=== PATIENT | female | born 1955 | race Caucasian/White ===

== ENCOUNTER 2019-10-30 18:44 | Outpatient (REF) | payer OTHER, SELFPAY ==
[2019-10-30 15:37] LABS: Abs Immature Grans 0.01 k/cumm (0.0-0.09); Absolute Basophil Count 0.02 k/cumm (0.0-0.2); Absolute Eosinophil Count 0.07 k/cumm (0.0-0.7); Absolute Lymphocyte Count 2.14 k/cumm (1.2-3.4); Absolute Monocyte Count 0.43 k/cumm (0.11-0.7); Absolute Neutrophil Count 4.64 k/cumm (1.2-6.7); Basophils % 0.3; HGB 12.6 g/dL (12.0-15.5); Immature Grans % 0.1 %; Lymphocytes % 29.3; Mean Corp. HGB Concentration 32.3 g/dL (32.0-36.0); Mean Corpuscular Hemoglobin 26.9 pg (27.0-33.0); Mean Corpuscular Volume 83.2 fL (80-95); Mean Platelet Volume 10.8 fL (8.0-11.0); Monocytes % 5.9; Neutrophils % 63.4; Platelet Count 291 x1000/uL (130-400); RBC 4.69 m/cumm (4.00-5.20); RBC Distribution Width 13.5 % (11.7-14.6); White Blood Cell Count 7.31 k/cumm (4.4-10.8)
[2019-10-30 16:46] LABS: ALT 22 U/L (14-59); AST 23 U/L (15-37); Alkaline Phosphatase 124 U/L (46-116); Anion Gap 8.5 mmol/L (3-11); BUN 19 mg/dL (7-18); Bilirubin, Total 0.3 mg/dL (0.2-1.0); CO2 27.5 mmol/L (21.0-32.0); Calcium 9.4 mg/dL (8.5-10.1); Calculated LDL 130 mg/dL (<100); Chloride 101 mmol/L (98-107); Cholesterol 215 mg/dL (<200); Glucose 85 mg/dL (74-106); HDL Cholesterol 64 mg/dL (40-60); Potassium 4.5 mmol/L (3.5-5.1); Sodium 137 mmol/L (136-145); TSH (W/Ref FT4) 1.61 uIU/mL (0.36-3.74); Total Protein 7.2 g/dL (6.4-8.2); Triglyceride 107 mg/dL (<150)
== END 2019-10-30 19:04 ==
LOC: LBO 18:44
PROVIDERS: PCP General Practice; Visit Provider General Practice
DX: Z00.00 Encounter for general adult medical examination without abnormal findings (principal); Z13.220 Encounter for screening for lipoid disorders; Z13.29 Encounter for screening for other suspected endocrine disorder; Z13.0 Encounter for screening for diseases of the blood and blood-forming organs and certain disorders involving the immune mechanism
CPT/HCPCS: 80053; 80061; 84443; 85025

== ENCOUNTER 2020-04-30 10:14 | Outpatient (CLI) | payer OTHER, SELFPAY ==
--- NOTE | 2020-04-30 08:45 | DI.RAD_ITS ---
EXAM: XR HIP RT AP LAT ONLY CLINICAL HISTORY: eval R hip pain. TECHNIQUE: 2D digital imaging was performed. COMPARISON: No exams were available for comparison FINDINGS: BONES: No acute fracture is present. No bony destructive lesion is seen. JOINTS: No dislocation present. Moderately severe degenerative changes are seen in the right hip with joint space narrowing, subchondral sclerosis and periarticular spurring. SOFT TISSUE: Surgical clips are seen in the right pelvis. IMPRESSION: Moderately severe degenerative changes of the right hip. DATA REPOSITORY: RADIATION DOSE DELIVERED:
== END 2020-04-30 10:34 ==
PROVIDERS: PCP General Practice; Referring Provider General Practice; Visit Provider Student in an Organized Health Care Education/Training Program
DX: M16.11 Unilateral primary osteoarthritis, right hip (principal); M25.551 Pain in right hip
CPT/HCPCS: 73502

== ENCOUNTER 2020-11-06 18:46 | Outpatient (REF) | payer OTHER, SELFPAY ==
[2020-11-06 17:08] LABS: Abs Immature Grans 0.02 10^3/uL (0.0-0.06); Absolute Basophil Count 0.04 10^3/uL (0.0-0.2); Absolute Eosinophil Count 0.07 10^3/uL (0.0-0.7); Absolute Lymphocyte Count 2.13 10^3/uL (1.2-3.4); Absolute Monocyte Count 0.45 10^3/uL (0.1-0.8); Basophils % 0.6; HCT 38.4 % (36.0-46.0); HGB 12.4 g/dL (11.2-15.7); Immature Grans % 0.3; MCH 27.2 pg (27.0-33.0); MCHC 32.3 % (32.0-36.0); MCV 84.2 fL (80-95); MPV 10.8 fL (8.0-11.0); Monocytes % 6.3; Neutrophils % 61.8; Nucleated RBC 0 %; Platelet Count 276 10^3/uL (130-400); RBC 4.56 10^6/uL (3.93-5.22); RDW 13.3 % (11.7-14.6); RDW-SD 41.2 fL; WBC 7.11 10^3/uL (4.4-10.8)
[2020-11-06 19:01] LABS: ALT 22 U/L (14-59); AST 23 U/L (15-37); Albumin 4.1 g/dL (3.4-5.0); Alkaline Phosphatase 132 U/L (46-116); Anion Gap 9.6 mmol/L (3-11); BUN 16 mg/dL (7-18); Bilirubin, Total 0.6 mg/dL (0.2-1.0); CO2 28.4 mmol/L (21.0-32.0); CREATININE 0.9 mg/dL (0.55-1.02); Calcium 9.5 mg/dL (8.5-10.1); Calculated LDL 120 mg/dL (<100); Chloride 103 mmol/L (98-107); Cholesterol 211 mg/dL (<200); Glucose 83 mg/dL (74-106); HDL Cholesterol 70 mg/dL (40-60); Potassium 4.3 mmol/L (3.5-5.1); Sodium 141 mmol/L (136-145); TSH (W/Ref FT4) 1.41 uIU/mL (0.36-3.74); Total Protein 7.2 g/dL (6.4-8.2); Triglyceride 106 mg/dL (<150)
== END 2020-11-06 18:47 | disposition home or self-care (01) ==
LOC: NCHCN 18:46
PROVIDERS: PCP General Practice; Visit Provider General Practice
DX: Z00.00 Encounter for general adult medical examination without abnormal findings (principal); Z13.220 Encounter for screening for lipoid disorders; Z13.228 Encounter for screening for other metabolic disorders; Z13.29 Encounter for screening for other suspected endocrine disorder; Z13.0 Encounter for screening for diseases of the blood and blood-forming organs and certain disorders involving the immune mechanism
CPT/HCPCS: 80053; 80061; 84443; 85025

== ENCOUNTER 2020-11-26 01:05 | Outpatient (CLI) | payer OTHER, SELFPAY ==
--- NOTE | 2020-11-26 12:00 | DI.MAMMO_ITS ---
Exam(s) MAMMO SCREENING EXAM: MAMMO SCREENING CLINICAL HISTORY: SCREENING,Z12.31. TECHNIQUE: Bilateral full field digital CC and MLO mammographic images were obtained with 3D tomosyn thesis and utilizing computer aided detection (CAD). COMPARISON: Prior outside mammogram dated October 2018 FINDINGS: There has been no significant change in the appearance and distribution of the fibroglandular tissue. Some asymmetric tissue towards the upper outer quadrant of the left breast is unchanged from the prio r study. There are no new spiculated masses nor malignant appearing microcalcification groups. There is no significant architectural distortion nor skin thickening-retraction. IMPRESSION: No radiographic evidence of malignancy. No significant change compared to the prior outside mammogram of October 2018. BI-RADS Category 1 - Negative Breast Density - Category B - Scattered areas of fibroglandular density Breast density Category C or D implies that the patient has dense breast tissue. Dense breast tissue can make it harder to find cancer on a mammogram. Dense breast tissue is also associated with an incr eased risk of breast cancer. This information about the result of the mammogram report was provided to the patient to raise their awareness. Use this report when you speak with the patient about their risks for breast cancer, which includes their family history. At that time, you may recommend additional screening tests (Ultrasoun d or MRI) as these tests may add significant information. A negative radiographic report should not delay biopsy if a dominant or clinically suspicious mass is present. Up to ten percent of cancers are not identified on mammography. A negative report may reinforce clinical impression. Adenosis and dense breasts may obscure an underlying neoplasm. False positive reports average 6 to 10%. Patient will receive a letter notifying them of these results.
== END 2020-11-26 01:25 ==
PROVIDERS: PCP General Practice; Visit Provider General Practice
DX: Z12.31 Encounter for screening mammogram for malignant neoplasm of breast (principal); R92.8 Other abnormal and inconclusive findings on diagnostic imaging of breast
CPT/HCPCS: 77063; 77067

== ENCOUNTER 2021-11-04 15:13 | Outpatient (REF) | payer OTHER, SELFPAY ==
[2021-11-04 16:34] LABS: Abs Immature Grans 0.02 10^3/uL (0.0-0.06); Absolute Basophil Count 0.04 10^3/uL (0.0-0.2); Absolute Eosinophil Count 0.08 10^3/uL (0.0-0.7); Absolute Lymphocyte Count 2.93 10^3/uL (1.2-3.4); Absolute Monocyte Count 0.61 10^3/uL (0.1-0.8); Absolute Neutrophil Count 5.32 10^3/uL (1.2-6.7); Basophils % 0.4; Eosinophils % 0.9; HCT 39.4 % (36.0-46.0); HGB 12.9 g/dL (11.2-15.7); Immature Grans % 0.2; Lymphocytes % 32.6; MCH 27.4 pg (27.0-33.0); MCHC 32.7 % (32.0-36.0); MCV 84 fL (80-95); MPV 10.9 fL (8.0-11.0); Monocytes % 6.8; Neutrophils % 59.1; Platelet Count 277 10^3/uL (130-400); RBC 4.71 10^6/uL (3.93-5.22); RDW 12.9 % (11.7-14.6); RDW-SD 39.5 fL
[2021-11-04 17:36] LABS: ALT 19 U/L (14-59); AST 20 U/L (15-37); Albumin 4.3 g/dL (3.4-5.0); Alkaline Phosphatase 118 U/L (46-116); Anion Gap 9.2 mmol/L (3-11); BUN 22 mg/dL (7-18); Bilirubin, Total 0.6 mg/dL (0.2-1.0); CO2 29.8 mmol/L (21.0-32.0); CREATININE 1.1 mg/dL (0.55-1.02); Calcium 9.6 mg/dL (8.5-10.1); Calculated LDL 125 mg/dL (<100); Chloride 99 mmol/L (98-107); Cholesterol 237 mg/dL (<200); Estimated GFR 50.01 (mL/min/1.73m2); Glucose 89 mg/dL (74-106); HDL Cholesterol 82 mg/dL (40-60); Sodium 138 mmol/L (136-145); TSH (W/Ref FT4) 2.17 uIU/mL (0.36-3.74); Total Protein 7.6 g/dL (6.4-8.2); Triglyceride 151 mg/dL (<150)
== END 2021-11-04 15:14 | disposition home or self-care (01) ==
LOC: LBO 15:13
PROVIDERS: PCP General Practice; Visit Provider General Practice
DX: Z00.00 Encounter for general adult medical examination without abnormal findings (principal); Z13.220 Encounter for screening for lipoid disorders; Z13.29 Encounter for screening for other suspected endocrine disorder; Z13.228 Encounter for screening for other metabolic disorders; Z13.0 Encounter for screening for diseases of the blood and blood-forming organs and certain disorders involving the immune mechanism
CPT/HCPCS: 36415; 80053; 80061; 84443; 85025

== ENCOUNTER → 2021-12-17 00:51 | Outpatient (CLI) | payer OTHER, SELFPAY ==
--- NOTE | 2021-12-17 12:45 | DI.MAMMO_ITS ---
Exam(s) MAMMO SCREENING EXAM: MAMMO SCREENING CLINICAL HISTORY: SCREENING, Z12.31 TECHNIQUE: Mammograms were interpreted according to the usual protocol including computer analysis w [employer] CAD system, tomosynthesis and C-view imaging. COMPARISON: 2018 and 2020 FINDINGS: The breasts are composed of scattered fibroglandular densities, Breast Density category B. No suspicious masses or suspicious microcalcifications are seen. No skin thickening or abnormal axillary lymph nodes are seen. There has been no significant change from prior exams. IMPRESSION: BI-RADS Category 1, Negative mammogram Yearly screening mammography is recommended. Breast Density - Category B, scattered fibroglandular densities. A negative radiographic report should not delay biopsy if a dominant or clinically suspicious mass is present. Up to ten percent of cancers are not identified on mammography. A negative report may reinforce clinical impression. Adenosis and dense breasts may obscure an underlying neoplasm. False positive reports average 6 to 10%. Patient will receive a letter notifying them of these results.
== END ==
PROVIDERS: PCP General Practice; Visit Provider General Practice
DX: Z12.31 Encounter for screening mammogram for malignant neoplasm of breast (principal)
CPT/HCPCS: 77063; 77067

== ENCOUNTER 2022-01-03 10:59 | Outpatient (CLI) | payer OTHER, SELFPAY ==
--- NOTE | 2022-01-03 09:45 | DI.RAD_ITS ---
Exam(s) XR KNEE LT 4V AP,LAT,KERWIN,PAT EXAM: XR KNEE LT 4V AP,LAT,KERWIN,PAT CLINICAL HISTORY: eval Left medial knee pain. TECHNIQUE: 2D digital imaging was performed. COMPARISON: No exams were available for comparison FINDINGS: Four views No evidence of fracture although there appears to be a slight increased amount of joint fluid. Mild degenerative changes in the medial compartment and patellofemoral compartment. Lateral compartment b one density normal. No osseous lesions IMPRESSION: Some degenerative changes. Small joint effusion DATA REPOSITORY: RADIATION DOSE DELIVERED:
== END 2022-01-03 11:00 | disposition home or self-care (01) ==
LOC: DIORS 10:59
PROVIDERS: PCP General Practice; Referring Provider General Practice; Visit Provider Student in an Organized Health Care Education/Training Program
DX: M17.12 Unilateral primary osteoarthritis, left knee (principal); M25.462 Effusion, left knee
CPT/HCPCS: 73564

== ENCOUNTER → 2022-01-13 02:23 | Outpatient (CLI) | payer OTHER, SELFPAY ==
--- NOTE | 2022-01-13 08:00 | DI.RAD_ITS ---
Exam(s) RF JOINT INJECTION FLUORO GUID EXAM: RF JOINT INJECTION FLUORO GUID CLINICAL HISTORY: R HIP INJ UNDER FLUORO,ARTHRITIS RT HIP, PAIN, M16.11. TECHNIQUE: 2D and realtime digital imaging was performed. COMPARISON: No exams were available for comparison FINDINGS: Possibly was provided for Dr. Chaves for guidance with performing a right hip injection. Please see procedure note for details. Fluoro time: 4.0seconds RADIATION DOSE DELIVERED: wei Keller=0.42 mGy
[2022-01-13] MEDS: methylPREDNISolone ACETATE 80 MG/ML VIAL IM (14:40)
[2022-01-13] MEDS: Bupivacaine 0.5% Pres-Free 10 ML VIAL 5 ML IJ (14:41)
[2022-01-13] MEDS: Omnipaque 300 MG/ML 10 ML BTL IJ (14:42)
--- NOTE | 2022-01-16 10:09 | W.PROCNOTE ---
Date of service: 01/13/22 Time of Service: 15:00 Procedure Note Date of procedure: 01/13/22 Procedure: Right Hip Injection with Fluoroscopic Guidance Surgeon/Proceduralist/Physician: Evan Chaves Procedure Diagnosis: Right Hip Osteoarthritis Procedure Indications: Gumaro has had persistent pain of the RIGHT hip and groin. Noninvasive measures have been tried. To serve as both diagnostic and therapeutic, an injection under fluoroscopy was recommended. I had discussed the risks of the procedure and the patient elected to proceed. Procedure Description: Gumaro was greeted in the flouroscopy room. The correct side was identified and the consent was reviewed with the patient and signed. The patient was then placed in the supine position on the fluoroscopy table. The RIGHT hip was then prepped with Chloraprep. The anterolateral injection starting point was identiifed by bony landmarks and fluoroscopy. The skin and soft tissue in the tract of the injection was anesthetized with 1% Lidocaine. A spinal needle was then inserted deep into the hip joint at the level of the lateral femoral neck under fluoroscopic guidance. A small amount of Omnipaque solution was injected to confirm intraarticular placement. Once confirmed, the hip was injected with 5cc of 0.5% Bupivicaine and 80mg of Depo-Medrol. A bandaid was placed on the injection site. The patient tolerated the procedure well and noted improvement in pre-injection pain.
== END ==
PROVIDERS: PCP General Practice; Visit Provider Student in an Organized Health Care Education/Training Program
DX: M16.11 Unilateral primary osteoarthritis, right hip (principal)
CPT/HCPCS: 20610; 77002; J1040

== ENCOUNTER → 2022-01-25 01:12 | Outpatient (CLI) | payer OTHER, SELFPAY ==
--- NOTE | 2022-01-25 07:15 | DI.MRI_ITS ---
Exam(s) MR LOWER JOINT LT WO EXAM: MR LOWER JOINT LT WO CLINICAL HISTORY: pain,INTERNAL DERANGEMENT LT KNEE, M23.92 TECHNIQUE: Multiplanar multisequence MRI of the knee was performed. COMPARISON: CR XR KNEE LT 4V AP,LAT,KERWIN,PAT from 01/03/2022 FINDINGS: EFFUSION: There is a small joint effusion. There is no Stephens cyst in the popliteal fossa. MARROW:There is no evidence of fracture, bone contusion, nor osteochondral defects.. There is an int raosseous septated bone cyst in the anterior medial aspect of the tibial metaphysis-diaphysis junctio n, not associated with surrounding bone edema and measuring approximately 1.2 by 0.8 by 0.9 cm. Ther e is no surrounding bone edema at this level. PATELLOFEMORAL COMPARTMENT: The quadriceps tendon is intact. The patellar ligament is intact. There is mild uniform narrowing of the retropatellar cartilage. No deep fissure therein. No osteoch ondral defects. No degenerative cysts in the posterior patella nor edema in the patella. There is n o intraosseous to signal to suggest recent patellar dislocation. There are no patellar retinacular t ears. CRUCIATE LIGAMENTS: The anterior cruciate ligament is intact.The posterior cruciate ligament is intac t. MEDIAL COMPARTMENT/MEDIAL MENISCUS: There is a tear in the outer 3rd of the posterior horn of the med ial meniscus which is slightly complex exhibiting both oblique and vertical components. Mild menisca l extrusion noted. Mild meniscocapsular separation. The meniscal root is intact. There is some deg enerative change in the overlying hyaline cartilage over the medial femoral condyle but without signi ficant subarticular edema. Also no fracture or edema in the subjacent medial tibial plateau. The anterior horn appears intact and without extrusion nor intrusion. Tiny marginal osteophyte is se en off the outer aspect of medial condyle.. MEDIAL COLLATERAL LIGAMENT: Mild sprain signal. No high-grade tear. LATERAL COMPARTMENT/LATERAL MENISCUS: There is no evidence of lateral meniscal tear.There are no leo dral defects, osteochondral defects, subarticular marrow edema, nor osteophytes evident. ILIOTIBIAL BAND: Intact LATERAL COLLATERAL LIGAMENT COMPLEX: The fibular collateral ligament is intact. The biceps femoris t endon is intact.Popliteus muscle and tendon are intact. IMPRESSION: 1. There is a complex tear of the medial meniscus, predominantly involving the posterior horn but ester rissa the junction of the anterior posterior horns. The meniscal root is intact. There is some over lying cartilage degenerative change management analyst the medial femoral condyle but minimal bone edema and no ost eochondral defects. Mild meniscocapsular separation. Mild meniscal extrusion at this level. There are no tears of the lateral meniscus. No degenerative changes evident in the lateral compartment. 2. Some sprain signal is evident in the anterior aspect of the MCL. There is no full-thickness tear of this structure. Lateral collateral ligament complex is intact. 3. There are no cruciate ligament tears. 4. Small joint effusion. No Stephens cyst. DATA REPOSITORY:
== END ==
PROVIDERS: PCP General Practice; Visit Provider Student in an Organized Health Care Education/Training Program
DX: S83.212A Bucket-handle tear of medial meniscus, current injury, left knee, initial encounter (principal); X58.XXXA Exposure to other specified factors, initial encounter
CPT/HCPCS: 73721

== ENCOUNTER 2022-03-30 08:56 | Day surgery (SDC) | payer OTHER, SELFPAY ==
[2022-03-30] VITALS (10 sets, daily range): BP systolic 88–151; BP diastolic 55–93; PULSE 56–78; RESP 13–23; TEMP 36–36.7; O2SAT 91–100; BMI 32.6
--- NOTE | 2022-03-30 08:11 | W.PREOPHP ---
Assessment and Plan Assessment and plan (1) Tear of medial meniscus of left knee: Status: Acute Assessment and plan: Left knee arthroscopy with partial medial meniscectomy. Details of surgery were discussed with patient as well as risks and pertinent anatomy. All questions were answered. History of Present Illness History of Present Illness Chief Complaint: L kne pain. Narrative: uGmaro is a 67-year-old female who comes in today for a left knee arthroscopy. She has been dealing with right knee pain for many months beginning in July 2021. She does not member any specific injury that started this pain, but the pain has been persistent. She has a sharp pain that occurs suddenly with certain movements of the knee. This is somewhat improved from pain that she had previously which was very constant. She continues to have lingering swelling and pain especially if sitting for a long period of time. She has tried [id number] medications and activity modifications, and her knee pain does not appear to be improving at this time. MRI of the left knee showed a complex tear of the medial meniscus without significant degenerative changes. Due to the duration of the pain and the impact on her daily life, Dr. Chaves suggests a left knee arthroscopy, and she is anxious to proceed. Review of Systems Constitutional Constitutional: Denies fever(s) ENT Ears, Nose, Mouth, and Throat: Denies dizziness and Denies sore throat Cardiovascular Cardiovascular: Denies chest pain, Denies palpitations and Denies dyspnea Respiratory Respiratory: Denies cough and Denies dyspnea Gastrointestinal Gastrointestinal: Denies abdominal pain, Denies melena, Denies hematochezia, Denies diarrhea, Denies nausea and Denies vomiting Genitourinary Genitourinary: Denies hematuria and Denies dysuria Neurologic Neurologic: Denies dizziness Endocrine Endocrine: Denies palpitations PFSH All Active Problems Low back pain (Acute) Hypertension (Chronic) Right hip pain (Acute) Piriformis syndrome of right side (Acute) Arthritis of right hip (Acute) Strain of right hip adductor muscle (Acute) Tear of medial meniscus of left knee (Acute) Medical History High cholesterol per pt. Surgical History (Updated 03/30/22 @ 09:10 by Gabby Rodriguez) History of cholecystectomy History of hysterectomy Hx of colonoscopy Hx of hand surgery cyst on right index finger 2013 Social History Smoking/Tobacco Use Status: Never Smoking risk assessment performed?: Yes Alcohol Intake: current Alcohol Intake frequency: 0-2 drinks per day Alcohol type: wine Drug use: Never Substance use type: does not use Do you feel safe at home: Yes Do you feel safe in your relationship?: Yes Meds Allergies and Home Medications Allergies Allergy/AdvReac Type Severity Reaction Status Date / Time penicillin G Allergy Hives Verified 03/30/22 09:11 Home Medications Medication Instructions Recorded Confirmed Type atorvastatin 10 mg tablet (Lipitor) 10 mg PO DAILY 11/15/21 03/30/22 History fluticasone propionate 50 1 spray intranasal DAILY 11/15/21 03/30/22 History mcg/actuation nasal spray,suspension (Children's Flonase Allergy Relief) losartan 100 1 tab PO DAILY 11/15/21 03/30/22 History mg-hydrochlorothiazide 25 mg tablet Exam Const General: cooperative and no acute distress Orientation: alert and awake [facility] Head: normocephalic and atraumatic Eyes Conjunctivae: conjunctivae normal Sclera: sclerae normal Resp Effort & Inspection: normal respiratory effort Auscultation: clear to auscultation bilaterally and no wheezes Cardio Rate: regular rate Rhythm: regular rhythm Heart Sounds: S1 normal, S2 normal and no murmurs
--- NOTE | 2022-03-30 09:42 | W.ANESPRE ---
General Info Date of Service Date Performed: 03/30/22 Height: 5 ft 7 in Weight: 94.6 kg Body Mass Index (BMI): 32.6 Surgical Procedure: Operation Date: 03/30/22 10:40 Proposed Procedure Side Surgeon p Knee Arthroscopy Partial Medial Menisectomy Left Evan Chaves MD Actual Procedure Side Surgeon p Knee Arthroscopy Partial Medial Menisectomy Left Evan Chaves MD Meds Allergies and Home Medications Allergies Allergy/AdvReac Type Severity Reaction Status Date / Time penicillin G Allergy Hives Verified 03/30/22 09:11 Home Medication Medication Instructions Recorded atorvastatin 10 mg tablet (Lipitor) 10 mg PO DAILY 11/15/21 fluticasone propionate 50 1 spray intranasal DAILY 11/15/21 mcg/actuation nasal spray,suspension (Children's Flonase Allergy Relief) losartan 100 1 tab PO DAILY 11/15/21 mg-hydrochlorothiazide 25 mg tablet Current Visit Medications: Current Medications Generic Name Dose Route Start Last Admin Trade Name Freq PRN Reason Stop Dose Admin Acetaminophen 650 mg 03/30/22 07:46 Acetaminophen 325 Mg Tab PO Q4H PRN PRN Hydrocodone Bitart/Acetaminophen 0 tab 03/30/22 07:46 Hydrocodone 5/Acetaminophen 325 Tab PO Q3H PRN PRN Pain Ringer's Solution 1,000 mls @ 80 mls/hr 03/30/22 06:00 IV 04/28/22 23:59 INFUSION GAVIN Cefazolin Sodium/Dextrose 2 gm in 50 mls @ 100 mls/hr 03/30/22 06:00 Ancef Duplex IVPB 04/28/22 23:59 PREOP GAVIN IV Miscellaneous Supplies 1 each 03/30/22 06:00 Iv Access IV 04/28/22 23:59 DIRECTED GAVIN Sodium Chloride 0 ml 03/30/22 06:00 Normal Saline Flush 10 Ml Syr IV 04/28/22 23:59 PRN PRN Sodium Chloride 0 ml 03/30/22 06:00 Normal Saline 10 Ml Vial IJ 04/28/22 23:59 DIRECTED PRN Sterile Water 0 ml 03/30/22 06:00 Water,Injection,Sterile 10 Ml Vial IJ 04/28/22 23:59 DIRECTED PRN PFSH Active Problems Active Problems: Problem Status Onset Code Low back pain M54.5 Hypertension I10 Right hip pain M25.551 Piriformis syndrome of right side G57.01 Arthritis of right hip M16.11 Strain of right hip adductor muscle S76.011A Tear of medial meniscus of left knee S83.242A Medical History Medical History High cholesterol per pt. Medical History Comments:: urinary retention (years ago) Surgical History Surgical History (Updated 03/30/22 @ 09:10 by Gabby Rodriguez) History of cholecystectomy History of hysterectomy Hx of colonoscopy Hx of hand surgery cyst on right index finger 2013 Tobacco Smoking/Tobacco Use Status: Never Alcohol Alcohol Intake: current Alcohol intake frequency: 0-2 drinks per day Alcohol type: wine Substance Use Substance use: Never Substance use type: does not use Vital Signs and Lab Results Vital Signs Most Recent Vital Signs in EMR: Most Recent Vital Signs Temp Pulse Resp BP Pulse Ox 36.7 C 65 15 151/93 H 100 03/30/22 09:13 03/30/22 09:13 03/30/22 09:13 03/30/22 09:13 03/30/22 09:13 Lab Results Blood Type / Crossmatch: No Data to Display Complete Blood Count: No Data to Display Complete Metabolic Panel: No Data to Display Liver Function Panel: No Data to Display Coagulation Panel: No Data to Display Cardiac Panel: No Data to Display Arterial Blood Gas: No Data to Display Venous Blood Gas: No Data to Display Pancreas Panel: No Data to Display Thyroid Panel: No Data to Display Infectious Disease: No Data to Display Blood Cultures: No Data to Display Toxicology Panel: No Data to Display Anesthesia Assessment and Plan Anesthesia History Personal History: No History of Anesthesia Complications Family History: No Family History of Anesthesia Complications Exercise Tolerance Exercise Tolerance: Metabolic Equivalents>4 Pertinent Negatives Pertinent Negatives: No Symptoms of GERD, No Major Cardiovascular Symptoms or Complaints, No Major Pulmonary Symptoms or Complaints and No History of CVA/TIA Cardiac & Pulmonary Exam Cardiac Exam: Normal S1/S2 Heart Sounds Pulmonary Exam: Clear Bilateral Breath Sounds Implantable Cardiac Device Does patient have a Pacemaker or an ICD?: No Airway Exam Known Difficult Airway: No Mallampati Class: 2 Mouth Opening: Normal (> 3cm) Thyromental Distance: Less than 3 cm Neck Range of Motion: Full ROM Neck Circumference: Thick Teeth Condition: Normal Dentition ASA Classification ASA Score: ASA 2 Emergency Case?: No NPO Status NPO Status: NPO Clears >2 hours, Solids >8 hours Anesthesia Plan Resuscitation Status: Full Code Anesthesia Technique: General Anesthesia Airway Planned: LMA Monitors Used: Standard Monitors and Central Line
[2022-03-30] MEDS: Lactated Ringers 1,000 ML 80 ML IV (09:50)
[2022-03-30] MEDS: ceFAZolin 2 GM/50 ML BAG IVPB (10:44)
--- NOTE | 2022-03-30 10:57 | PDOC.DSDIS_ITS ---
Discharge Plan Disposition Patient Disposition: HOME Condition: Good Discharge Details Reason For Visit: L knee arthroscopy Attending Provider: Evan Chaves Primary Care Provider: Gabby Ireland Home Meds and New Rx's Prescriptions: New hydrocodone-acetaminophen 5-325 mg tablet 1 tab PO Q6H PRN (Reason: pain) Qty: 6 0RF acetaminophen 500 mg tablet 1,000 mg PO TID Qty: 90 0RF ibuprofen 600 mg tablet 600 mg PO TID PRN (Reason: pain) Qty: 90 0RF Continued atorvastatin [Lipitor] 10 mg tablet 10 mg PO DAILY fluticasone propionate [Children's Flonase Allergy Rlf] 50 mcg/actuation spray,suspension 1 spray intranasal DAILY Rx Instructions: administer into each nostril losartan-hydrochlorothiazide 100-25 mg tablet 1 tab PO DAILY Discharge Instructions Stand Alone Forms: [facility] Knee Arthroscopy Referrals: Evan Chaves MD [ [facility] STAFF PHYSICIAN] - Equipment/Supplies: Partial Weight Bearing Crutches Activity:: Activity as Tolerated Remove Dressings/Wound Care:: 48 hours Shower/Bathe:: 48 hours Discharge Orders Discharge Orders: Discharge Order (Routine); Ordered 03/30/22 Ordered By: Karie Serrano DS: Diagnosis Discharge Diagnosis (1) Tear of medial meniscus of left knee: Status: Acute
[2022-03-30] MEDS: Bupivacaine 0.5% Pres-Free 30 ML VIAL (10:58)
[2022-03-30] MEDS: fentaNYL 100 MCG/2 ML VIAL IVP ×3 (11:35→12:05)
--- NOTE | 2022-03-30 12:13 | W.ANESPOSTOP ---
Postoperative Evaluation Date, Time and Location Date Performed: 03/30/22 Time Performed: 12:14 Patient Location: PACU Vital Signs Most Recent Imported Vital Signs: Most Recent Vital Signs Temp Pulse Resp BP Pulse Ox 36.6 C 59 L 15 106/75 98 03/30/22 12:12 03/30/22 12:12 03/30/22 12:12 03/30/22 12:12 03/30/22 12:12 Pain Score Most Recent Pain Score: Most Recent Pain Score Pain Level 2 03/30/22 12:12 Assessment Mental Status: Awake (Alert & Oriented to Patient Baseline) Airway and Respiratory Function: Patent airway with normal (patient baseline) respiratory exam Cardiovascular Function: Hemodynamically Stable Hydration Status: Adequately Hydrated Nausea & Vomiting: No Nausea or Vomiting Pain: Pain is tolerable per patient Peripheral Nerve Block: Patient did not receive a nerve block
[2022-03-30] MEDS: HYDROcodone 5/Acetaminophen 325 TAB PO (12:39)
--- NOTE | 2022-03-30 18:29 | W.PM.OP ---
Date of service: 03/30/22 Time of Service: 12:00 Operative Note Operative Note DATE OF PROCEDURE: 03/30/22 PRE-OP DIAGNOSIS: Left Knee Medial Meniscus Tear POST-OP DIAGNOSIS: other (Left Knee Medial and Lateral Meniscus Tear) PROCEDURE: Left Knee Arthroscopic Partial Medial and Lateral Menisectomy SURGEON: Evan Chaves ANESTHESIA TYPE: General LMA/ETT Refer to Anesthesia Record ESTIMATED BLOOD LOSS: 0 PATHOLOGY: none sent COMPLICATIONS: None Patient was transported to: PACU Patient's condition: stable Indications: I have seen Gumaro in clinic for symptoms of a meniscus tear. This was confirmed based on MRI and exam findings. Nonoperative measures were exhausted but disability and pain persisted. I discussed knee arthroscopy with meniscal intervention with the patient. I reviewed the risks of the procedure to include, but not limited to, bleeding, infection, pain, stiffness, damage to nerves or vessels, recurrence, blood clot. Despite these risks, the patient elected to proceed. 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 The consent was reviewed with the patient and signed. The history and physical was updated. All questions were answered. Gumaro was taken back to the operating room. The patient was placed into the supine position on the operating room table. A nonsterile tourniquet was placed high onto the leg but not used. All bony prominences were well padded. Prophylactic antibiotics in the form of Cefazolin were administered. The left leg was then prepped with Chloraprep and draped in a standard fashion with stockinette and extremity drape. A timeout to confirm correct identity, side and site, procedure, allergies, anesthesia, and medical concerns was performed. The leg was placed into a pneumatic leg coon, [id number]. A standard lateral portal was made at the lateral border of the patella tendon in line with the inferior pole of the patella, soft spot. The skin and deep tissue was incised sharply and the blunt trochar was inserted atraumatically. A diagnostic arthroscopy was performed and the findings are listed above. The suprapatellar pouch had no significant inflammatory change. The patellofemoral articulation showed no articular damage as well as good tracking. The lateral gutter had no loose bodies and the medial gutter had no loose bodies. The knee was brought into some valgus stress in extension to open the medial compartment. A medial portal was made, localized by a spinal needle. The portal was created with an #11 blade through skin and capsule under direct visualization avoiding any meniscal injury. A probe was then inserted into the medial compartment. The medial compartment was fully inspected. The chondral surface of the tibia showed some Grade I chondromalacia centrally and the surface of the femur showed Grade II chondromalacia. The medial meniscus had a complex meniscal tear with multiple displaced fragments and partial involvement of the root. After evaluation, the meniscus was debrided down to a stable base using a series of biters and arthroscopic garcia. It was probed afterwards to confirm that the tear had been removed and the meniscus was stable. Cartilage surfaces were debrided of any flaps, leaving any intact fibers. The notch was then inspected which showed an intact ACL and an intact PCL. The leg was then brought into a figure of 4 position. The lateral compartment was fully inspected with the arthroscope and a probe. The chondral surface of the lateral femur showed some Grade I chondromalacia. The chondral surface of the lateral tibia showed no significant chondromalacia. The lateral meniscus had a tear adjacent to the root which was a complete radial tear with some fragmentation at the root. After evaluation, the meniscus was debrided down to a stable base using a series of biters and arthroscopic garcia. It was probed afterwards to confirm that the tear had been removed and the meniscus was stable. The arthroscope was brought back into the suprapatellar pouch and the leg was in full extension. The knee was thoroughly irrigated with the arthroscopic fluid on high flow and pressure. Inflow was stopped and excess fluid was removed. The wounds were closed with 4-0 Nylon. They were dressed with Xeroform, 4x4 gauze, ABD pad, Kerlix and an ANA CRISTINA wrap. A cryo-cuff was applied. The patient tolerated the procedure well and was returned to the Same Day Surgery area in a stable condition suffering no known complication.
== END 2022-03-30 14:05 | disposition home or self-care (01) ==
PROVIDERS: PCP General Practice; Visit Provider Student in an Organized Health Care Education/Training Program
PROC: (CPT 29870; principal; 2022-03-30 10:30)
DX: M23.232 Derangement of other medial meniscus due to old tear or injury, left knee (principal); M23.262 Derangement of other lateral meniscus due to old tear or injury, left knee; M94.262 Chondromalacia, left knee
CPT/HCPCS: 29880; J0690; J1100; J1885; J2405; J2704; J3010

== ENCOUNTER 2022-11-21 13:21 | Outpatient (CLI) | payer OTHER, SELFPAY ==
--- NOTE | 2022-11-21 16:09 | DI.RAD_ITS ---
Exam(s) XR HIP RT COMPLETE AP PELVIS EXAM: XR HIP RT COMPLETE AP PELVIS CLINICAL HISTORY: Right hip pain. TECHNIQUE: 2D digital imaging was performed. COMPARISON: No exams were available for comparison FINDINGS: Two views No evidence of pelvic nor hip fracture. Severe advanced [id number] degenerative changes in the rig ht hip noted as well as subarticular geodes on both sides the joint, the largest being in the superol ateral aspect of the femoral head. There is also marginal osteophytes at the femoral head level as s een on the lateral view. Minimal findings in the opposite-left hip. IMPRESSION: Severe advanced osteoarthritic degenerative changes in the right hip. DATA REPOSITORY: RADIATION DOSE DELIVERED:
== END 2022-11-21 13:22 | disposition home or self-care (01) ==
LOC: DIORS 13:22
PROVIDERS: PCP General Practice; Referring Provider General Practice; Visit Provider Physician Assistant
DX: M16.11 Unilateral primary osteoarthritis, right hip (principal)
CPT/HCPCS: 73502

== ENCOUNTER 2023-01-02 04:47 | Outpatient (CLI) | payer OTHER, SELFPAY ==
[2023-01-02 14:54] LABS: HCT 39.1 % (36.0-46.0); HGB 12.5 g/dL (11.2-15.7); MCH 26.8 pg (27.0-33.0); MCV 84 fL (80-95); MPV 10.5 fL (8.0-11.0); Platelet Count 306 10^3/uL (130-400); RBC 4.66 10^6/uL (3.93-5.22); RDW 13.1 % (11.7-14.6); RDW-SD 39.8 fL
[2023-01-02 15:58] LABS: Anion Gap 8.2 mmol/L (3-11); BUN 24 mg/dL (7-18); CO2 29.8 mmol/L (21.0-32.0); CREATININE 1.2 mg/dL (0.55-1.02); Calcium 9.9 mg/dL (8.5-10.1); Chloride 103 mmol/L (98-107); Estimated GFR 50.23 (mL/min/1.73m2); Glucose 100 mg/dL (74-106); Potassium 3.8 mmol/L (3.5-5.1); Sodium 141 mmol/L (136-145)
== END 2023-01-02 04:48 | disposition home or self-care (01) ==
LOC: LBO 04:47
PROVIDERS: PCP General Practice; Visit Provider Student in an Organized Health Care Education/Training Program
DX: M25.551 Pain in right hip (principal); M16.11 Unilateral primary osteoarthritis, right hip; Z01.818 Encounter for other preprocedural examination; Z01.812 Encounter for preprocedural laboratory examination
CPT/HCPCS: 36415; 80048; 85027

== ENCOUNTER 2023-01-10 08:19 | Day surgery (SDC) | payer OTHER, SELFPAY ==
[2023-01-10] VITALS (9 sets, daily range): BP systolic 105–131; BP diastolic 62–90; PULSE 66–75; RESP 13–21; TEMP 35.8–36.6; O2SAT 95–100; BMI 33.8
[2023-01-10] MEDS: Celecoxib 200 MG CAP 400 MG PO (08:55)
[2023-01-10] MEDS: Acetaminophen 500 MG TAB 1000 MG PO (08:56)
[2023-01-10] MEDS: Lactated Ringers 1,000 ML 80 ML IV (09:18)
--- NOTE | 2023-01-10 09:34 | W.ANESPRE ---
General Info Date of Service Date Performed: 01/10/23 Height: 5 ft 7 in Weight: 98.1 kg Body Mass Index (BMI): 33.8 Surgical Procedure: Operation Date: 01/10/23 11:35 Proposed Procedure Side Surgeon p Hip Total Hip Anterior, ACTIS Right Evan Chaves MD Meds Allergies and Home Medications Allergies Allergy/AdvReac Type Severity Reaction Status Date / Time sucralose Allergy Severe Swelling/Ed Verified 01/10/23 08:40 leo penicillin G Allergy Hives Verified 01/10/23 08:40 Home Medication Medication Instructions Recorded atorvastatin 10 mg tablet (Lipitor) 10 mg PO DAILY 11/15/21 fluticasone propionate 50 1 spray intranasal DAILY 11/15/21 mcg/actuation nasal spray,suspension (Children's Flonase Allergy Relief) losartan 100 1 tab PO DAILY 11/15/21 mg-hydrochlorothiazide 25 mg tablet acetaminophen 500 mg tablet 1,000 mg PO TID #90 tabs 03/30/22 celecoxib 200 mg capsule (Celebrex) 200 mg PO DAILY PRN pain #60 caps 11/21/22 Current Visit Medications: Current Medications Generic Name Dose Route Start Last Admin Trade Name Freq PRN Reason Stop Dose Admin Acetaminophen 1,000 mg 01/10/23 07:39 Acetaminophen 500 Mg Tab PO 02/09/23 07:38 TID PRN PRN Analgesia Acetaminophen 1,000 mg 01/10/23 06:00 01/10/23 08:56 Acetaminophen 500 Mg Tab PO 01/10/23 16:00 1,000 mg PREOP GAVIN Administration Celecoxib 400 mg 01/10/23 06:00 01/10/23 08:55 Celecoxib 200 Mg Cap PO 01/10/23 16:00 400 mg PREOP GAVIN Administration Docusate Sodium 100 mg 01/10/23 07:39 Docusate Sodium 100 Mg Cap PO 02/09/23 07:38 BID PRN PRN Constipation Ringer's Solution 1,000 mls @ 80 mls/hr 01/10/23 06:00 01/10/23 09:18 IV 02/08/23 23:59 80 mls/hr INFUSION GAVIN Administration Cefazolin Sodium/Dextrose 2 gm in 50 mls @ 100 mls/hr 01/10/23 06:00 Ancef Duplex IVPB 01/10/23 16:00 PREOP GAVIN Tranexamic Acid 1,000 mg/ 60 mls @ 360 mls/hr 01/10/23 06:00 Sodium Chloride IVPB 01/10/23 16:00 PREOP [facility] IV Miscellaneous Supplies 1 each 01/10/23 06:00 Iv Access IV 02/08/23 23:59 DIRECTED GAVIN Ondansetron HCl 4 mg 01/10/23 07:39 Ondansetron 4 Mg/2 Ml Vial IVP 02/09/23 07:38 Q6H PRN PRN Nausea Oxycodone HCl 0 mg 01/10/23 07:39 Oxycodone 5 Mg Tab PO 02/09/23 07:38 Q3H PRN PRN Pain Polyethylene Glycol 17 gm 01/10/23 07:39 Polyethylene Glycol 3350 17 Gm Packet PO 02/09/23 07:38 BID PRN PRN Constipation Sodium Chloride 0 ml 01/10/23 06:00 Normal Saline Flush 10 Ml Syr IV 02/08/23 23:59 PRN PRN Sodium Chloride 0 ml 01/10/23 06:00 Normal Saline 10 Ml Vial IJ 02/08/23 23:59 DIRECTED PRN Sterile Water 0 ml 01/10/23 06:00 Water,Injection,Sterile 10 Ml Vial IJ 02/08/23 23:59 DIRECTED PRN PFSH Active Problems Active Problems: Problem Status Onset Code Low back pain M54.5 Hypertension I10 Right hip pain M25.551 Piriformis syndrome of right side G57.01 Arthritis of right hip M16.11 Strain of right hip adductor muscle S76.011A Medical History Medical History High cholesterol per pt. Medical History Comments:: urinary retention (years ago). Pt. states with her last knee surgery she has restless legs and was concerned for this surgery that it would be an issue 01/10/23 pt reports that she cannot lay flat, if she lay flats she gags. Sleep study @ 10 years ago identified that she can only sleep on sides 01/10/23: pt reports she has scoliosis Surgical History Surgical History History of cholecystectomy History of hysterectomy Hx of colonoscopy Hx of hand surgery cyst on right index finger 2014 Tear of medial meniscus of left knee S/P L knee arthroscopy with partial medial meniscectomy: 03/30/2022 Tobacco Smoking/Tobacco Use Status: Never Alcohol Alcohol Intake: former Substance Use Substance use: Never Substance use type: does not use Vital Signs and Lab Results Vital Signs Most Recent Vital Signs in EMR: Most Recent Vital Signs Temp Pulse Resp BP Pulse Ox 36.5 C 71 18 125/90 98 01/10/23 08:40 01/10/23 08:40 01/10/23 08:40 01/10/23 08:40 01/10/23 08:40 Lab Results Blood Type / Crossmatch: No Data to Display Complete Blood Count: White Blood Count 7.90 10^3/uL (4.4-10.8) 01/02/23 14:47 Red Blood Count 4.66 10^6/uL (3.93-5.22) 01/02/23 14:47 Hemoglobin 12.5 g/dL (11.2-15.7) 01/02/23 14:47 Hematocrit 39.1 % (36.0-46.0) 01/02/23 14:47 Platelet Count 306 10^3/uL (130-400) 01/02/23 14:47 Complete Metabolic Panel: Sodium 141 mmol/L (136-145) 01/02/23 14:47 Potassium 3.8 mmol/L (3.5-5.1) 01/02/23 14:47 Chloride 103 mmol/L (98-107) 01/02/23 14:47 Carbon Dioxide 29.8 mmol/L (21.0-32.0) 01/02/23 14:47 BUN 24 mg/dL (7-18) H 01/02/23 14:47 Creatinine 1.2 mg/dL (0.55-1.02) H 01/02/23 14:47 Est GFR (CKD-EPI 2020) 50.23 (mL/min/1.73m2) 01/02/23 14:47 Calcium 9.9 mg/dL (8.5-10.1) 01/02/23 14:47 Glucose 100 mg/dL (74-106) 01/02/23 14:47 Liver Function Panel: No Data to Display Coagulation Panel: No Data to Display Cardiac Panel: No Data to Display Arterial Blood Gas: No Data to Display Venous Blood Gas: No Data to Display Pancreas Panel: No Data to Display Thyroid Panel: No Data to Display Infectious Disease: No Data to Display Blood Cultures: No Data to Display Toxicology Panel: No Data to Display Anesthesia Assessment and Plan Anesthesia History Personal History: No History of Anesthesia Complications Family History: No Family History of Anesthesia Complications Exercise Tolerance Exercise Tolerance: Metabolic Equivalents>4 Pertinent Negatives Pertinent Negatives: No Symptoms of GERD Cardiac & Pulmonary Exam Cardiac Exam: Normal S1/S2 Heart Sounds Pulmonary Exam: Clear Bilateral Breath Sounds Implantable Cardiac Device Does patient have a Pacemaker or an ICD?: No Airway Exam Known Difficult Airway: No Mallampati Class: 2 Mouth Opening: Normal (> 3cm) Thyromental Distance: Less than 3 cm Neck Range of Motion: Full ROM Neck Circumference: Thick Teeth Condition: Normal Dentition ASA Classification ASA Score: ASA 2 Emergency Case?: No NPO Status NPO Status: NPO Clears >2 hours, Solids >8 hours Anesthesia Plan Resuscitation Status: Full Code Anesthesia Technique: Spinal Anesthesia Airway Planned: Natural Airway Monitors Used: Standard Monitors
[2023-01-10] MEDS: ceFAZolin 2 GM/50 ML BAG IVPB (10:58)
--- NOTE | 2023-01-10 12:00 | DI.RAD_ITS ---
Exam(s) XR HIP RT IN OR EXAM: XR HIP RT IN OR CLINICAL HISTORY: right total hip. TECHNIQUE: 2D and realtime digital imaging was performed. COMPARISON: CR XR HIP RT COMPLETE AP PELVIS from 11/21/2022 FINDINGS: Hard copy images show placement of a right hip prosthesis. The alignment appears satisfactory. Please see procedure note for details. Fluoro time: 29seconds RADIATION DOSE DELIVERED: Ka,r=4.28 mGy
--- NOTE | 2023-01-10 13:29 | W.ANESPOSTOP ---
Postoperative Evaluation Date, Time and Location Date Performed: 01/10/23 Time Performed: 13:29 Patient Location: Day Surgery Unit Vital Signs Most Recent Imported Vital Signs: Most Recent Vital Signs Temp Pulse Resp BP Pulse Ox 35.9 C L 66 16 113/73 98 01/10/23 12:54 01/10/23 12:54 01/10/23 12:54 01/10/23 12:54 01/10/23 12:54 Pain Score Most Recent Pain Score: Most Recent Pain Score Pain Level 0 01/10/23 12:54 Assessment Mental Status: Awake (Alert & Oriented to Patient Baseline) Airway and Respiratory Function: Patent airway with normal (patient baseline) respiratory exam Cardiovascular Function: Hemodynamically Stable Hydration Status: Adequately Hydrated Nausea & Vomiting: No Nausea or Vomiting Pain: Pt. Denies Any Pain Peripheral Nerve Block: Patient did not receive a nerve block
[2023-01-10] MEDS: oxyCODONE 5 MG TAB PO (13:33)
[2023-01-10] MEDS: Normal Saline Flush 10 ML SYR IV (13:35)
--- NOTE | 2023-01-10 14:47 | PDOC.DSDIS_ITS ---
Date of service: 01/10/23 Time of Service: 14:00 Discharge Plan Disposition Patient Disposition: Home Condition: Good Discharge Details Reason For Visit: R THR Attending Provider: Evan Chaves Primary Care Provider: Gabby Ireland Home Meds and New Rx's Prescriptions: New celecoxib 200 mg capsule 200 mg PO BID Qty: 60 0RF aspirin 81 mg tablet,delayed release (DR/EC) 81 mg PO BID Qty: 60 0RF acetaminophen 500 mg tablet 1,000 mg PO TID Qty: 90 3RF pantoprazole 40 mg tablet,delayed release (DR/EC) 40 mg PO DAILY Qty: 30 0RF dexamethasone 4 mg tablet 4 mg PO DAILY Qty: 2 0RF oxycodone 5 mg tablet 5 mg PO Q4H MDD 6 tabs PRN (Reason: pain) Qty: 20 0RF Continued atorvastatin [Lipitor] 10 mg tablet 10 mg PO DAILY fluticasone propionate [Children's Flonase Allergy Rlf] 50 mcg/actuation spray,suspension 1 spray intranasal DAILY Rx Instructions: administer into each nostril losartan-hydrochlorothiazide 100-25 mg tablet 1 tab PO DAILY Discontinued celecoxib [Celebrex] 200 mg capsule 200 mg PO DAILY PRN (Reason: pain) Qty: 60 0RF Rx Instructions: Take one tablet for severe pain and inflammation acetaminophen 500 mg tablet 1,000 mg PO TID Qty: 90 0RF Discharge Instructions Additional Instructions: Total Hip Discharge Instructions Activity: The most important activity is to walk. You should try to take short walks a few times a day. You have no restrictions on movement or positioning, but do not try to force what you do. You will find some stiffness and weakness with hip flexion (lifting your knee). Do not try to strengthen this too early, continue to practice walking and stairs and this will come. - Outpatient physical therapy can be helpful to help return you to a normal gait and improve your flexibility and strength. This can start around 2 weeks. For some patients, it?s not necessary. Usually this is determined at the time of discharge or at the first post-operative visit. - You should wear the EUNICE hose on both legs for 2 weeks. Dressing: Keep the surgical dressing in place for at least one week. After the first week it may be removed and replace with light gauze and tape or nothing. It may get wet after 3 days but avoid soaking the dressing. If it gets wet, just lightly pat dry. It is important to always keep some gauze between skin folds, especially when you are sitting. Spend some time with the wound exposed when you are lying flat as the incision does wrinkle onto itself. Medications: - You should take Tylenol and an anti-inflammatory Celebrex as your primary pain control medications. If the Celebrex is too expensive or not covered, please call the office for another alternative (Advil/Ibuprofen or Naproxen/Aleve). - You have been prescribed a stronger pain medication Oxycodone for breakthrough pain, take as needed as prescribed. - You have also been prescribed a stomach acid reduction agent Pantoprozole to help reduce stomach acid and reflux. - You have also been prescribed Decadron to help with post-operative nausea and pain. You will take this for two days starting tomorrow. - You will be taking Aspirin 81mg twice a day for DVT prevention unless instructed otherwise. - If you have constipation you should take Colace or Miralax (both [id number]). It takes most people 3-4 days to have a bowel movement. Follow-up: 2 weeks If you have any acute concerns or questions, please do not hesitate to contact the office at [phone]. You may contact Dr. Chaves with any questions after hours through the hospital at [phone] or on his cell phone at [phone]. Stand Alone Forms: Anesthesia Discharge InstTeena, Sherlyn Vang ([facility]) Referrals: Evan Chaves MD [ [facility] STAFF PHYSICIAN] - 01/23/23 1:30 pm Equipment/Supplies: Walker Activity:: Activity as Tolerated Shower/Bathe:: 72 hours Diet:: As Tolerated Discharge Orders Discharge Orders: Discharge Order (Routine); Ordered 01/10/23 Ordered By: Evan Chaves DS: Diagnosis Discharge Diagnosis (1) Arthritis of right hip: Status: Acute
--- NOTE | 2023-01-10 14:49 | W.PM.OP ---
Date of service: 01/10/23 Time of Service: 12:05 Operative Note Operative Note DATE OF PROCEDURE: 01/10/23 PRE-OP DIAGNOSIS: Right Hip Osteoarthritis POST-OP DIAGNOSIS: same PROCEDURE: Right Anterior Total Hip Arthroplasty with Intraoperative Navigation SURGEON: Evan Chaves ANESTHESIA TYPE: Spinal Refer to Anesthesia Record PATHOLOGY: none sent TOURNIQUET TIME: 0 COMPLICATIONS: None Patient was transported to: PACU Patient's condition: stable Implants: 1. Depuy [place] Acetabular Component, 52mm 2. Depuy Acetabular Liner, 50p84df 3. Depuy Actis Standard Collared Femoral Stem, Size 5 4. Depuy Altrx Ceramic Femoral Head, Size 36+8.5mm Indications: I have seen Gumaro in clinic for symptoms of hip arthritis, confirmed with radiographic findings. She has exhausted nonoperative methods and was having significant limitations in daily function and desired better function and less pain. I discussed the technical details of a hip replacement. I explained the risks of the procedure to include, but not limited to, bleeding, infection, pain, stiffness, fracture, damage to nerves and vessels, damage to muscles and tendons, loosening, instability, leg length inequality, need for repeat procedure, blood clot and cardiopulmonary demise. Despite these risks, Gumaro elected to proceed. Findings: There was significant signs of arthritis throughout the hip, both femur and acetabulum. Procedure Description: Gumaro was greeted in the preoperative holding area where the correct side was identified and marked. The consent was reviewed with the patient and signed. The history and physical was updated. All questions were answered. SHe was taken back to the operating room. A spinal anesthestic was then administered. The feet were wrapped with cast padding and Coban and then placed into the boot liners and then into the boots. Care was taken to protect the skin and make sure the heels were fully down and the boots were stable. The patient was then positioned onto the HANA table. Both legs were held in a neutral position. SCDs were applied. The patient was then slid down onto a peroneal post. Prophylactic antibiotics in the form of Cefazolin were administered. 1g of Tranxemic Acid was given intravenously within 30 minutes of incision. The right leg was then prepped with Chloraprep and draped in a standard fashion. A second prep with Chloraprep was performed prior to placement of a shower-curtain type drape with Iodine impregnated skin protection. A timeout to confirm correct identity, side and site, procedure, allergies, anesthesia, and medical concerns was performed. An obliquely oriented incision was made starting lateral to the ASIS and running distal over the Tensor Fascia Elissa (TFL) muscle belly toward the fibular head, approximately 10cm. The skin and soft tissue was dissected sharply, through Eduar?s fascia, and to the fascia of the TFL. With the fascia and superior border of the IT band identified, the fascia was incised with a new knife just above any perforators from the IT band. The TFL muscle belly was bluntly dissected away from the fascia and moved laterally. The fat between TFL and rectus was identified to ensure the dissection was not within the TFL. Blunt dissection created space between abductors and the capsule and retractor was placed over the lateral femoral neck. The fibers of the rectus femoris tendon were identified and these were freed from the anterior capsule. A second cobra retractor was placed around the medial femoral neck. The TFL was further retracted laterally to show the deep fascia. Careful dissection through this layer identified three main crossing vessels of the lateral femoral circumflex. These were cauterized in multiple locations and then cut without any noticeable bleeding. The TFL was further released bluntly from the deep fascia to expose anterior hip capsule and fat The Genaro orthopaedic retractor was then placed beneath the TFL and against sartorius and medial soft tissues to protect and retract the soft tissues. A T-capsulotomy was then performed starting at the superior lateral acetabulum and moving distally to the intertrochanteric ridge. These capsular flaps were tagged with a No. 1 Ethibond and elevated from within. The capsular flaps were released to the shoulder of the lateral neck and to the lesser trochanter to give excellent visualization of the proximal femur. A neck osteotomy was performed using an oscillating saw based on preoperative templates. This cut started in the shoulder and of the lateral neck and exited medially. The saw was at all times directed medially to avoid injury to the greater trochanter. Gross traction was applied to the leg and the osteotomy opened. The femoral head was removed with a corkscrew, making sure to protect the TFL on its exit. Traction was released after head removal. This was measured on the back table to determine the starting reamer size. Portions of the rectus obscuring visualization were minimally elevated off the superior acetabulum. An anterior retractor was placed over the anterior wall between capsule and labrum and attached to the Gripper retraction system. The femur was rotated to 90 degrees and medial capsule was fully released until the lesser trochanter was palpable and visible; the femur was returned to 30 degrees. A posterior retractor was placed similarly between capsule and labrum. This provided excellent visualization. The contents of the cotyloid fossa were removed with electrocautery and the labrum was removed with a knife. There was a notable floor osteophyte. There was significant chondromalacia of the superior acetabulum. Acetabular reaming began with a 48mm reamer. This first reaming was directed anterior to posterior and medial to get down to the true floor. This was inspected and reamed until the true floor was reached. The anterior retractor was then released and entry and exit was provided by traction on the capsular flaps. I then reamed sequentially up to a 52mm reamer where good fit was obtained. The larger reamers were oriented based on anatomical reference of the anterior and lateral paz to ensure proper abduction and anteversion. Positioning and size was confirmed with the fluoroscopy. A 52mm Depuy [place] acetabular component was selected. The acetabulum was reamed around the periphery with the selected acetabular size to prevent a rim fit. The deep tissues were irrigated. The acetabular component was then impacted in a position of about 40-45 degrees of abduction and 15-20 degrees of anteversion, using the patient?s anatomy as the ultimate landmark. Fluoroscopy was used to confirm this. There was excellent trim installer of the acetabular component and the inserting handle was removed. The acetabular liner, Depuy [id number] polyethylene liner, was inserted and lined up with the tines of the acetabular component. There was no soft tissue interposition. The liner was then impacted into position and confirmed to be well-seated. A portion of the eleno-articular cocktail was then injected around the acetabulum into the capsule and periosteum. This cocktail consisted of 123mg of Ropivacaine, 0.25mg of Epinephrine, 0.04mg of Clonidine, and 15mg of Ketorolac, diluted to 50cc. The leg was rotated to 120 degrees. Any remaining medial capsule was released until the lesser trochanter was easily palpable. A retractor was placed medially. The lateral capsule was further released into the shoulder to allow access to the greater trochanter. A Riley retractor was placed over the greater trochanter which allowed the trochanter to flip in front of the capsule for excellent exposure. The leg was brought down into maximal extension and 20 degrees of adduction while ensuring there was no impingement on the acetabulum. Any remnant capsule within the trochanter was released. Piriformis and obturator externis were identified and protected. There was excellent access to the proximal femur. The lateral neck remnant was removed with a rongeur. A blunt canal probe was used to identify the canal and trajectory for later broaching. A box osteotome initiated the broach course. A small curved rasp and a curved curette were used to work laterally. Broaching then began with a starter Actis broach. This was inserted manually around the trochanter and into the canal before mallet blows. The broach was seated to the neck cut level based on the neck cut and the preoperative template. Sequential broaching was continued with the Lucky Pai pneumatic broaching device until a tight fit was obtained with good rotational control of the femur. A trial standard neck was inserted along with a +8.5 trial head. The leg was brought out of extension and adduction and then reduced with traction and internal rotation. The leg was stable anteriorly in a position of 30 degrees of extension and 90 degrees of external rotation. Fluoroscopy was used to ensure there was no fracture and the stem was seated well. Leg lengths were checked with an AP pelvis and pelvic reference points. [facility] navigation system was used to confirm appropriate positioning and leg length and offset. Once content with the desired offset and leg lengths, the leg was brought back into extension, external rotation and adduction. The periosteum and surrounding tissue was injected with remaining portion of the eleno-articular cocktail. The proximal femur was irrigated as well as the deep tissues. The Aimetisuy Actis standard collared stem, size 5, was then manually inserted into the proximal femur making sure to control rotation. It was then malleted into position with light blows, giving breaks to allow bone expansion and decrease risk of fracture. The selected Depuy Altrx Ceramic Head, size 36+8.5mm, was then placed onto the clean and dry trunnion and secured with impaction onto the tapered fit. The leg was brought back out of extension and adduction and reduced with traction and internal rotation. Stability was confirmed with no shuck at 90 degrees of external rotation and 30 degrees of extension. No impingement through range of motion arc. Final x-ray images were obtained with fluoroscopy to confirm adequate positioning and no intraoperative fracture. The deep tissues were thoroughly irrigated with Surgiphor, betadine solution. This was allowed to sit in the wound for 3 minutes before being thoroughly irrigated out with normal saline. The capsule was then reapproximated with the previously placed Ethibond sutures. The TFL fascia was finally closed with a No. 2 Stratafix, barbed suture. Deep tissues were then reapproximated with 0 Vicryl and a running 2-0 Vicryl. The skin was closed with a running 4-0 Monocryl in a subcuticular fashion. This was reinforced with skin glue. A Mepilex silver dressing was applied. At the end of the case, all counts were correct. Gumaro was transferred to the hospital bed without difficulty and suffering no apparent complication. Gumaro has a good prognosis. Physical therapy will start today and without restrictions, weight-bearing as tolerated. Aspirin 81mg BID will be used for DVT prophylaxis.
--- NOTE | 2023-01-10 16:15 | PT.INIE ---
Date of service: 01/10/23 Time of Service: 14:25 PT Notes Visit Reasons: R THR Physical Therapy Day Surgery Initial Evaluation Date: 01/10/2023 Referring Doctor: SEVERIANO Rea PT Orders: PT CONSULT: S/p Ortho surgery Precautions: WBAT on Patient Profile/Admitting Diagnosis: Gumaro is a 67-year-old female with degenerative joint disease of the right hip and status post right total hip arthroplasty on postoperative day 0. PMHX: Medical History? High cholesterol per pt. Surgical History?(Updated 04/11/22 @ 10:39 by SEVERIANO Rea) History of cholecystectomy History of hysterectomy Hx of colonoscopy Hx of hand surgery cyst on right index finger 2013 Tear of medial meniscus of left knee S/P L knee arthroscopy with partial medial meniscectomy: 03/30/2022 Social History/Home Situation: Lives with in a private home with 2 steps to enter with 1 rail. Had been modified independent holding onto furniture's at home as she has not been stable on her own due to right hip issue. Equipment Owned/DME: None Subjective: Reports 3?4/10 pain in the right hip at rest and with weight bearing. Objective: General Observation: Resting on bedside recliner. Mepilex Ag over surgical incision. TEDS to be legs. present in room throughout session. Mental Status: Alert and oriented x 4 Pain: As above ROM: Right Lower Extremity: Hip flexion WFL. Hip abduction WFL. Knee flexion WFL. Ankle dorsiflexion WFL. Ankle plantarflexion WFL. Left Lower Extremity: Hip flexion WFL. Hip abduction WFL. Knee flexion WFL. Ankle dorsiflexion WFL. Ankle plantarflexion WFL. Strength: Right Lower Extremity: Hip flexors 4/5. Hip abductors 4/5. Knee flexors 5/5. Knee extensors 4/5. Ankle dorsiflexors 5/5. Ankle plantarflexors 5/5. Left Lower Extremity:Hip flexors 5/5. Hip abductors 5/5. Knee flexors 5/5. Knee extensors 5/5. Ankle dorsiflexors 5/5. Ankle plantarflexors 5/5. Sensation: Intact as to pain and light pressure in bilateral lower extremities Bed Mobility/Transfers: Supine to sit stand by assist Sit to stand stand by assist with FWW Stand to sit stand by assist with FWW Bed to chair stand by assist with FWW Gait: 150 feet using front wheeled walker with step through gait pattern requiring only standby assist. No LOB. No SOB. Stairs: Ascended and descended 6 x 4 inch steps and 4 x 6 inch steps while holding onto 1 rail and using a single-point cane with the other hand with step to gait pattern requiring only contact-guard assist, minimal cues provided for correct technique. Balance: Static Sitting: Normal Dynamic Sitting: Normal Static Standing: Fair Dynamic Standing: Fair Special Tests: Mobility Limitations Standardized Measure [facility] AM-PAC 6 clicks Basic Mobility Inpatient Short Form: Raw Score: 23 CMS Score: 11% deficit Informed Consent/Education: Patient instructed in purpose of PT consult. Packet containing NILAM exercise protocol has been given to patient. Education and training on initial set of exercises that can be done at home have been completed with patient. Access Code: [email or web address] URL: [email or web address] Date: 01/10/2023 Prepared by: Rajani Collins Exercises - Gluteal Sets - 1 x daily - 7 x weekly - 1 sets - 10 reps - 5 hold - Supine Heel Slide - 1 x daily - 7 x weekly - 1 sets - 10 reps - 5 hold - Supine Ankle Pumps - 1 x daily - 7 x weekly - 1 sets - 10 reps - 5 hold - Seated March - 1 x daily - 7 x weekly - 1 sets - 10 reps - 5 hold - Seated Long Arc Quad - 1 x daily - 7 x weekly - 1 sets - 10 reps - 5 hold Assessment: Patient requires the use of a front wheeled walker to maximize independence and reduce fall risk. Patient presents with clinical signs and symptoms consistent with current/admitting diagnoses that have resulted to mobility limitations, gait instability, generalized weakness, and impairment of motor control as demonstrated by the following impairment level findings: 1. Decreased strength to R hip major muscle groups 2. Impaired standing balance 3. Limitation of joint range of motion in R hip Impairments are contributing to the following functional limitations: 1. Inability to safely ambulate without assistive device 2. Increase completion time for mobility ADL performance 3. Increased fall risk Patient is assessed as a 61127 moderate complexity based on the following: History: 67-year-old female with impairment level findings, functional limitations, and past medical history as indicated above Examination: Demonstrable impairment in strength, balance, and mobility level with underlying impairments and functional limitations as documented above Presentation: Evolving Decision Makin moderate complexity Goals: N/A. PT evaluation and 1-2 treatment sessions only for functional mobility training using recommended AD and for HEP instruction. Plan of Care/Treatment Plan: N/A. PT evaluation and 1-2 treatment session only for functional mobility training using recommended AD and for HEP instruction. DISCHARGE RECOMMENDATIONS: Home with and medically cleared by orthopedic surgeon. Recommend outpatient PT services in order to optimize functional mobility outcomes and facilitate return to independent community ambulation without an assistive device. TREATMENT CODE/TIME: 68728 x 20 minutes (1 unit), 31913 x 16 minutes (1 unit) beginning at 14:25 PM. Thank you for the opportunity to participate in the care of this patient. Rajani Collins PT, DPT, CLT [facility] [place], [place]
== END 2023-01-10 15:50 | disposition home or self-care (01) ==
PROVIDERS: PCP General Practice; Visit Provider Student in an Organized Health Care Education/Training Program
PROC: (CPT 27130; principal; 2023-01-10 11:15)
DX: M16.11 Unilateral primary osteoarthritis, right hip (principal); I10 Essential (primary) hypertension; M54.50 Low back pain, unspecified
CPT/HCPCS: 27130; 20985; 97162; 97530; 73501; J0690; J1100; J2001; J2250; J2405; J2704

== ENCOUNTER 2023-01-23 13:37 | Outpatient (CLI) | payer OTHER, SELFPAY ==
--- NOTE | 2023-01-23 13:11 | DI.RAD_ITS ---
Exam(s) XR HIP RT COMPLETE AP PELVIS EXAM: XR HIP RT COMPLETE AP PELVIS INDICATION: F/U R NILAM. COMPARISON: CR XR HIP RT COMPLETE AP PELVIS from 11/21/2022 XA XR HIP RT IN OR from 01/10/2023 TECHNIQUE: 2D digital imaging was performed. Three views. FINDINGS: There has been no change in the alignment of the right hip prosthesis. There are no abnormal surroun ding bony lucencies. Mild degenerative changes are present in the left hip. DATA REPOSITORY: RADIATION DOSE DELIVERED:
== END 2023-01-23 13:38 | disposition home or self-care (01) ==
LOC: DIORS 13:37
PROVIDERS: PCP General Practice; Referring Provider General Practice; Visit Provider Physician Assistant
DX: Z96.641 Presence of right artificial hip joint (principal); Z47.1 Aftercare following joint replacement surgery
CPT/HCPCS: 73502